=== PATIENT | female | born 2005 | race Caucasian/White ===

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

== ENCOUNTER → 2024-03-10 | Outpatient (CLI) | payer BC ==
[~2024-03-10] MED LIST changes: +LACT10SY PO; +Macrobid 100 M100 MG PO; +[UNRECOGNIZED DRUG - OTHER]
== END | disposition home or self-care (01) ==
LOC: LAB SHORT 16:28 → LAB 16:28
DX: R30.0 Dysuria (principal)
CPT/HCPCS: 87077; 87086; 87186

== ENCOUNTER → 2024-09-22 | Outpatient (CLI) | payer BC | LOC: LAB 11:31 → LAB SHORT 11:31 | DX: N39.0 Urinary tract infection, site not specified (principal) | CPT/HCPCS: 87077; 87086; 87186 ==

== ENCOUNTER → 2024-11-14 | Outpatient (CLI) | payer BC | END | disposition home or self-care (01) | LOC: LAB 09:26 → LAB SHORT 09:26 | DX: N39.0 Urinary tract infection, site not specified (principal); R31.9 Hematuria, unspecified | CPT/HCPCS: 87077; 87086; 87186 ==

== ENCOUNTER → 2024-12-16 | Outpatient (CLI) | payer BC | LOC: LAB 15:26 → LAB SHORT 15:26 | DX: L02.91 Cutaneous abscess, unspecified (principal) | CPT/HCPCS: 87070; 87075; 87147; 87205 ==

== ENCOUNTER → 2025-01-27 | Outpatient (CLI) | payer BC | END | disposition home or self-care (01) | LOC: LAB 17:05 → LAB SHORT 17:05 | DX: R30.0 Dysuria (principal) | CPT/HCPCS: 87086 ==

== ENCOUNTER 2025-05-17 06:34 | Day surgery (SDC) | payer BC ==
[~2025-05-17] VITALS: Ht 165.1 cm; Wt 64.2 kg
[2025-05-17] VITALS (8 sets, daily range): BP systolic 94–109; BP diastolic 54–76
[~2025-05-17 06:34] MED LIST changes: +Ampicillin Sod/Sulbactam Sod 3 GM in NS 100 ML IV SCH; +CEPH500 PO
[2025-05-17] MEDS ORDERED: Ampicillin Sod/Sulbactam Sod 3 GM ONE (06:38)
[2025-05-17] MEDS ORDERED: Bupivacaine 0.5% W/EPI 1:200000 SDV 30 ML Vial ONE (07:31)
[2025-05-17] MEDS ORDERED: Dexamethasone Sod Phos 10 MG/ML 1ML VIAL ONE (07:33)
[2025-05-17] MEDS ORDERED: Ondansetron HCl 2 MG / ML 2ML Vial ONE ×2 (07:33→10:15)
[2025-05-17] MEDS ORDERED: FentaNYL Citrate 50 MCG/ML 2 ML Injection ONE (07:33)
[2025-05-17] MEDS ORDERED: Lidocaine HCl 4% 5 ML SDA ONE (07:37)
[2025-05-17] MEDS ORDERED: FentaNYL Citrate 50 MCG/ML 2 ML Injection IV PRN ×2 (07:50→07:55)
[2025-05-17] MEDS ORDERED: HYDROmorphone HCl/Pf 1MG SYR IV PRN (07:50)
[2025-05-17] MEDS ORDERED: Prochlorperazine Edisylate 10 mg Vial IV PRN (07:50)
[2025-05-17] MEDS ORDERED: Metoclopramide HCl 5MG / ML 2ML Vial IV PRN (07:55)
[2025-05-17] MEDS ORDERED: Midazolam HCl 1MG / ML 2ML Vial IV PRN (07:55)
[2025-05-17] MEDS ORDERED: Ondansetron HCl 2 MG / ML 2ML Vial IV PRN (07:55)
[2025-05-17] MEDS ORDERED: Albuterol 2.5 MG/3 ML VIAL INH PRN (07:55)
[2025-05-17] MEDS ORDERED: Rocuronium Bromide 10 MG/ML 5ML Injection IV ONE (07:57)
[2025-05-17] MEDS ORDERED: Ketorolac Tromethamine 30mg Vial ONE (07:58)
[2025-05-17] MEDS ORDERED: Sugammadex Sodium 200 MG/2ML SDV (100 MG/ML) ONE (08:01)
[2025-05-17] MEDS ORDERED: HYDROmorphone HCl/Pf 1MG SYR ONE (09:50)
[2025-05-17] MEDS ORDERED: OxyCODONE 5 mg/Acetamin 325 mg TABLET PO PRN (10:00)
[2025-05-17] MEDS ORDERED: Metoclopramide HCl 5MG / ML 2ML Vial ONE (10:15)
--- NOTE | 2025-05-17 11:37 | NUR ---
Patient up to Ambulate independently. Gait steady. Discharge instructions reviewed with patient. Patient verbalizes understanding. Copy given to patient to take home.Ambulatory in Day Surgery
== END 2025-05-17 11:22 | disposition home or self-care (01) ==
LOC: ORSCMMR 06:34 → ORD 08:00 → ORSCMMR 08:00
PROVIDERS: Surgery
PROC: 0HX8XZZ Transfer Buttock Skin, External Approach (ICD-10-PCS; principal; 2025-05-17 08:00)
PROC: 0JB90ZZ Excision of Buttock Subcutaneous Tissue and Fascia, Open Approach (ICD-10-PCS; principal; 2025-05-17 08:00)
DX: L05.01 Pilonidal cyst with abscess (principal)
CPT/HCPCS: 88304; J0295; J1100; J1171; J1885; J2003; J2250; J2405; J2704; J2765; J3010; J7120

== ENCOUNTER → 2025-05-23 | Outpatient (CLI) | payer BC ==
[~2025-05-23] MED LIST changes: -Ampicillin Sod/Sulbactam Sod 3 GM in NS 100 ML IV SCH
== END ==
LOC: LAB SHORT 16:43 → LAB 16:43
DX: N39.0 Urinary tract infection, site not specified (principal)
CPT/HCPCS: 87077; 87086; 87186